=== PATIENT | male | born 1990 | race Two or more races ===

== ENCOUNTER → 2019-07-22 | Outpatient (CLI) | payer OTHER ==
[2019-07-23 15:02] LABS: ANTINUCLEAR ANTIBODIES Negative (Negative)
== END ==
LOC: OD 10:26
PROVIDERS: ATTEND Internal Medicine Gastroenterology
DX: R94.5 Abnormal results of liver function studies (principal)
CPT/HCPCS: 36415; 83540; 86038; 86256